=== PATIENT | female | born 1955 | race Caucasian/White ===

== ENCOUNTER 2018-09-01 17:32 | Inpatient (IN) | payer OTHER ==
[~2018-09-01] VITALS: Ht 162.6 cm; Wt 61.3 kg
[2018-09-01 17:32] VITALS: BP_SYST 123
[2018-09-01] MEDS ORDERED: NALOXONE HCL 2 MG/2 ML SYR IVP ONE (18:15)
[2018-09-01 18:52] LABS: ANION GAP 7 (5-15); CALCIUM 8.8 mg/dL (8.4-11.0); CHLORIDE 107 mmol/L (98-107); CREATININE 0.95 mg/dL (0.55-1.30); GLUCOSE 107 mg/dL (70-99); POTASSIUM 4.1 mmol/L (3.5-5.1); SODIUM SERUM 142 mmol/L (136-145); UREA NITROGEN, BLOOD 20 mg/dL (8-21)
[2018-09-01 18:53] LABS: GFR AFRICAN AMERICAN 76 mL/min (>90)
[2018-09-01 18:54] LABS: BASOPHILS # (AUTO) 0.1 K/uL (0.0-0.2); BASOPHILS % (AUTO) 0.7 % (0.0-2.0); EOSINOPHILS # (AUTO) 0.2 K/uL (0.0-0.4); EOSINOPHILS % (AUTO) 1.6 % (0.0-4.0); HEMATOCRIT 38.4 % (36-48); HEMOGLOBIN 12.1 g/dL (12.0-16.0); LYMPHOCYTES # (AUTO) 1.3 K/uL (1.0-5.5); MEAN CORPUSCULAR HEMOGLOBIN 28 pg (27-31); MEAN CORPUSCULAR HGB CONC 31 % (32-36); MEAN CORPUSCULAR VOLUME 89 fL (79.0-98.0); MONOCYTES # (AUTO) 0.2 K/uL (0.0-1.0); MONOCYTES % (AUTO) 2.2 % (1.7-9.3); NEUTROPHILS # (AUTO) 8.9 K/uL (1.8-7.7); NEUTROPHILS % (AUTO) 83.5 % (40.0-70.0); PLATELET COUNT (AUTO) 361 K/uL (130-430); RED CELL DISTRIBUTION WIDTH 15.1 % (9.0-15.0); WHITE BLOOD COUNT (AUTO) 10.7 K/uL (4.8-10.8)
[2018-09-01 18:57] LABS: PROTHROMBIN TIME 10.4 SECS (9.5-12.5)
[2018-09-01 18:58] LABS: ALANINE AMINOTRANSFERASE 17 U/L (12-78); ALBUMIN 2.8 g/dL (3.4-4.8); ASPARTATE AMINOTRANSFERASE 23 U/L (10-37); TOTAL BILIRUBIN 0.3 mg/dL (0.0-1.0)
[2018-09-01 18:59] LABS: ACETAMINOPHEN < 1 ug/mL (1-30); ALCOHOL, BLOOD < 3 mg/dL (<10)
[2018-09-01 21:48] LABS: BILIRUBIN,URINE NEGATIVE (NEGATIVE); BLOOD, URINE NEGATIVE (NEGATIVE); CLARITY/URINE CLEAR (CLEAR); COLOR,URINE YELLOW (YELLOW); GLUCOSE,URINE NEGATIVE (NEGATIVE); KETONES,URINE NEGATIVE (NEGATIVE); LEUKOCYTE ESTERASE ,URINE NEGATIVE (NEGATIVE); NITRITE, URINE NEGATIVE (NEGATIVE); PROTEIN URINE NEGATIVE (NEGATIVE); UROBILINOGEN,URINE 0.2 (0.2-1.0)
[2018-09-01 22:08] LABS: BARBITURATE, URINE NEGATIVE (NEG <=200); BENZODIAZEPINE, URINE NEGATIVE (NEG <=150); CANNABINOID, URINE NEGATIVE (NEG <=50); COCAINE, URINE NEGATIVE (NEG <=150); METHAMPHETAMINES SCREEN,URINE NEGATIVE (NEG <=500); OPIATE, URINE NEGATIVE (NEG <=100); PHENCYCLIDINE SCREEN,URINE NEGATIVE (NEG <=25); UR TRICYCLIC ANTIDEPRESSANTS NEGATIVE (NEG <=300); URINE AMPHETAMINE NEGATIVE (NEG <=500); URINE METHADONE NEGATIVE (NEG <=200); URINE OXYCODONE SCREEN POSITIVE (NEG <=100); URINE PROPOXYPHENE SCREEN NEGATIVE (NEG <=300)
[2018-09-01 22:39] VITALS: BP_SYST 120
[2018-09-02] MEDS ORDERED: NACL 0.9% 1,000 ML IV SCH (00:10)
[2018-09-02] MEDS ORDERED: ALBUTEROL SULFATE 0.083% 2.5 MG/3 ML VIAL.NEB INH PRN (00:15)
[2018-09-02 00:24] VITALS: BP_SYST 135
[2018-09-02] MEDS: ONDANSETRON HCL 4 MG/2 ML VIAL IVP PRN ×2 (02:11→20:31)
[2018-09-02] MEDS ORDERED: MORPHINE 4 MG/ML INJ. SYRINGE IVP SCH (04:15)
[2018-09-02 04:20] VITALS: BP_SYST 114
[2018-09-02 07:11] LABS: BASOPHILS # (AUTO) 0.1 K/uL (0.0-0.2); BASOPHILS % (AUTO) 0.8 % (0.0-2.0); EOSINOPHILS % (AUTO) 0.2 % (0.0-4.0); HEMATOCRIT 36.5 % (36-48); HEMOGLOBIN 11.6 g/dL (12.0-16.0); LYMPHOCYTES # (AUTO) 1.1 K/uL (1.0-5.5); MEAN CORPUSCULAR HEMOGLOBIN 28 pg (27-31); MEAN CORPUSCULAR HGB CONC 32 % (32-36); MEAN CORPUSCULAR VOLUME 88 fL (79.0-98.0); MONOCYTES # (AUTO) 0.2 K/uL (0.0-1.0); MONOCYTES % (AUTO) 1.7 % (1.7-9.3); NEUTROPHILS # (AUTO) 9.5 K/uL (1.8-7.7); NEUTROPHILS % (AUTO) 87.3 % (40.0-70.0); PLATELET COUNT (AUTO) 381 K/uL (130-430); RED BLOOD CELL COUNT(AUTO) 4.13 MIL/uL (4.2-6.2); RED CELL DISTRIBUTION WIDTH 14.4 % (9.0-15.0); WHITE BLOOD COUNT (AUTO) 10.9 K/uL (4.8-10.8)
[2018-09-02 08:00] VITALS: BP_SYST 134
[2018-09-02] MEDS ORDERED: NEU400 PO (09:18)
[2018-09-02] MEDS ORDERED: SERT100T PO (09:18)
[2018-09-02] MEDS ORDERED: GABA-333 PO (09:18)
[2018-09-02] MEDS ORDERED: ZONI100C42 PO (09:18)
[2018-09-02] MEDS ORDERED: PANT20TA2 PO (09:18)
[2018-09-02] MEDS ORDERED: FENT-71 TD (09:18)
[2018-09-02] MEDS ORDERED: PROP60CA6 PO (09:18)
[2018-09-02] MEDS ORDERED: LIP40 PO (09:18)
[2018-09-02] MEDS ORDERED: ALEN10TA6 PO (09:18)
[2018-09-02] MEDS ORDERED: PERC10 GT (09:18)
[2018-09-02] MEDS ORDERED: BACL10TA PO (09:18)
[2018-09-02] MEDS ORDERED: LEVOFLOXACIN 500 MG/D5W 100 ML IV SCH (10:30)
[2018-09-02] MEDS ORDERED: MORPHINE 4 MG/ML INJ. SYRINGE IVP ONE (11:45)
[2018-09-02] MEDS ORDERED: LEVOFLOXACIN 500 MG TABLET PO ONE (11:45)
[2018-09-02] MEDS ORDERED: LEVOFLOXACIN 500 MG TABLET PO SCH (11:45)
[2018-09-02 12:01] VITALS: BP_SYST 118
[2018-09-02] MEDS: 0.45% NACL 1,000 ML IV SCH (12:31)
[2018-09-02] MEDS: LEVOFLOXACIN 500 MG TABLET PO SCH (12:41)
[2018-09-02 16:50] VITALS: BP_SYST 135
[2018-09-02] MEDS: HYDROcodone/ACETAMIN 5-325 MG TAB (NORCO/ VICODIN) PO PRN ×2 (18:34→23:00)
[2018-09-02 19:25] VITALS: BP_SYST 126
[2018-09-02] MEDS: MORPHINE 4 MG/ML INJ. SYRINGE IVP PRN (21:28)
[2018-09-03 00:20] VITALS: BP_SYST 128
[2018-09-03] MEDS: MORPHINE 4 MG/ML INJ. SYRINGE IVP PRN ×3 (01:42→10:57)
[2018-09-03] MEDS: HYDROcodone/ACETAMIN 5-325 MG TAB (NORCO/ VICODIN) PO PRN ×2 (03:29→08:22)
[2018-09-03] MEDS: 0.45% NACL 1,000 ML IV SCH (04:07)
[2018-09-03 07:03] LABS: BASOPHILS # (AUTO) 0.1 K/uL (0.0-0.2); BASOPHILS % (AUTO) 0.8 % (0.0-2.0); EOSINOPHILS # (AUTO) 0.1 K/uL (0.0-0.4); EOSINOPHILS % (AUTO) 0.8 % (0.0-4.0); HEMATOCRIT 32.2 % (36-48); HEMOGLOBIN 10.1 g/dL (12.0-16.0); LYMPHOCYTES # (AUTO) 1.9 K/uL (1.0-5.5); LYMPHOCYTES % (AUTO) 19.9 % (20.5-51.5); MEAN CORPUSCULAR HEMOGLOBIN 28 pg (27-31); MEAN CORPUSCULAR HGB CONC 31 % (32-36); MEAN CORPUSCULAR VOLUME 89 fL (79.0-98.0); MONOCYTES # (AUTO) 0.6 K/uL (0.0-1.0); MONOCYTES % (AUTO) 6.2 % (1.7-9.3); NEUTROPHILS # (AUTO) 6.6 K/uL (1.8-7.7); NEUTROPHILS % (AUTO) 72.3 % (40.0-70.0); PLATELET COUNT (AUTO) 334 K/uL (130-430); RED CELL DISTRIBUTION WIDTH 14.8 % (9.0-15.0); WHITE BLOOD COUNT (AUTO) 9.3 K/uL (4.8-10.8)
[2018-09-03 07:17] LABS: ALBUMIN 2.6 g/dL (3.4-4.8); CREATININE 0.56 mg/dL (0.55-1.30); POTASSIUM 3.3 mmol/L (3.5-5.1); TOTAL BILIRUBIN 0.4 mg/dL (0.0-1.0)
[2018-09-03 07:41] VITALS: BP_SYST 139
[2018-09-03] MEDS ORDERED: POTASSIUM CHLORIDE 20 MEQ TAB.PRT.SR PO ONE (09:45)
[2018-09-03] MEDS: LEVOFLOXACIN 500 MG TABLET PO SCH (10:56)
[2018-09-03 11:47] VITALS: BP_SYST 131
[2018-09-03] MEDS ORDERED: LEVO250T2 PO (11:47)
[2018-09-03] MEDS ORDERED: ALBU8.5H8 INH (11:49)
[2018-09-03 12:19] VITALS: BP_SYST 131
== END 2018-09-03 12:50 | disposition home or self-care (01) | DRG 917 ==
LOC: SED 17:32 → STU 22:13
PROVIDERS: ADMIT Internal Medicine; ATTEND Internal Medicine
DX: T40.2X1A Poisoning by other opioids, accidental (unintentional), initial encounter (principal); J96.01 Acute respiratory failure with hypoxia; J18.9 Pneumonia, unspecified organism; J44.0 Chronic obstructive pulmonary disease with (acute) lower respiratory infection; F11.20 Opioid dependence, uncomplicated; E46 Unspecified protein-calorie malnutrition; G89.29 Other chronic pain; T42.6X1A Poisoning by other antiepileptic and sedative-hypnotic drugs, accidental (unintentional), initial encounter; E78.5 Hyperlipidemia, unspecified; I51.7 Cardiomegaly; G40.909 Epilepsy, unspecified, not intractable, without status epilepticus; F17.210 Nicotine dependence, cigarettes, uncomplicated; M54.9 Dorsalgia, unspecified; Z87.01 Personal history of pneumonia (recurrent); Z82.49 Family history of ischemic heart disease and other diseases of the circulatory system; Y92.89 Other specified places as the place of occurrence of the external cause; Z88.0 Allergy status to penicillin; Z88.1 Allergy status to other antibiotic agents; Z68.23 Body mass index [BMI] 23.0-23.9, adult
CPT/HCPCS: 36415; 36600; 71045; 80048; 80053; 80307; 81003; 82803-TC; 84484; 85025; 85610-TC; 85730-TC; 87081; 93005; 96374; 99285; G0378; G0480; G0481; G0482; J1956; J2270; J2310; J2405; J7030